=== PATIENT | male | born 1980 | race Caucasian/White ===

== ENCOUNTER 2018-03-14 18:44 | Observation (INO) | payer MEDICAID, MEDICARE ==
[2018-03-14] MEDS ORDERED: NORMAL SALINE 1,000 ML IV ONE (18:50)
--- NOTE | 2018-03-14 18:59 | ERNOTE ---
Abdominal HPI - Narrative Date of Service: 03/14/18 - General Time Seen by Provider: 03/14/18 18:47 Source: patient, RN/MD, EMS Exam Limitations: no limitations - History of Present Illness Narrative: patient presents to the ED in transfer for appendicitis, acute. He was seen at [facility] today for abdominal pain right sided. This was diagnosed by CT as a retrocecal appendicitis without apparent complication. No surgeons available at [place], patient transferred here. Patient relates pain under control right now. Still with some right sided pain though. Nausea is now under control. Timing: constant Activities at Onset: none Modifying Factors - (Improves): Present: other - nothing Modifying Factors - (Worsens): Present: other - nothing Associated Symptoms: Present: diarrhea-mucous, nausea. Absent: chest pain, shortness of breath Prior Abdominal Problems: Absent: similar symptoms Prior Treatment: Present: recently seen, treated by physician Review of Systems - Review of Systems Constitutional: Absent: fever EYE: Present: no symptoms reported Respiratory: Absent: shortness of breath Cardiology: Absent: chest pain Gastrointestinal/Abdominal: Present: abdominal pain Genitourinary: Absent: dysuria All Other Systems: All systems neg except as marked Medical History (Last Updated 03/14/18 @ 18:56 by Jim Richardson MD) TBI (traumatic brain injury) TBI (traumatic brain injury) Social History: Preferred Language Albanian Physical Exam - Physical Exam General Appearance: Present: alert, no apparent distress Head Exam: Present: normal inspection, no evidence of injury Eye Exam: Normal inspection: bilateral, PERRL: bilateral Ears, Nose, Throat: Present: normal ENT inspection Neck: Present: normal inspection Respiratory: Present: no respiratory distress, normal breath sounds, no accessory muscle use, lungs clear Cardiovascular/Chest: Present: regular rate, rhythm, normal peripheral pulses Gastrointestinal/Abdominal: Present: normal bowel sounds, soft, other - RLQ tenderness topalpation, guarding noted. Back Exam: Present: normal range of motion Extremity Exam: Present: normal inspection Neurological Exam: Present: alert, no motor/sensory deficits Skin Exam: Present: normal color, warm/dry ED Progress - Results and Orders Results and Orders: I reviewed labs from outlying hospital - Vital Signs Patient's Vital Signs:: I have reviewed the patient's vital signs. - Progress/Reassessment Progress Note-Subjective: 03/14/18 18:57 Patient seen in ED. I spoke with Dr Schmitz who saw the patient in the ED and will take the patient to surgery. Departure Clinical Impression: Acute appendicitis - Departure Disposition: Still a patient Condition: Stable
--- NOTE | 2018-03-14 19:24 | ERNOTE ---
Abdominal HPI - Narrative Date of Service: 03/14/18 - General Chief Complaint: Abdominal Pain Time Seen by Provider: 03/14/18 18:47 Source: patient Exam Limitations: no limitations - Immun/Allergies/Home Medications Immunizatons: IMMUNIZATION HX Immunizations Up to Date No History of Influenza Vaccine Yes Hx Pneumococcal Vaccination No Allergies/Adverse Reactions: Allergies none Allergy (Uncoded 03/14/18 19:19) No allergies Home Medications: HOME MEDICATIONS Citalopram HBr 03/14/18 [Last Taken Unknown] [place] 03/14/18 [Last Taken Unknown] Seroquel 03/14/18 [Last Taken Unknown] - History of Present Illness Narrative: Pt developed right sided abdominal pain this am. Made himself throw up this am to try to feel better. However, this did not improve his symptoms. He has felt like this before, but never this severe. He went to the [place] emergency room, had a CT scan which showed retrocecal appendicitis, and was transferred to [place]. He has leukocytosis with a white count of 13.1. Date (Duration): 03/14/18 Time (Timing): 19:14 Timing: getting worse Review of Systems - Review of Systems Constitutional: Present: fever, malaise EYE: Present: no symptoms reported ENT: Present: no symptoms reported Respiratory: Present: no symptoms reported Cardiology: Present: no symptoms reported Gastrointestinal/Abdominal: Present: nausea, vomiting, abdominal pain, eating less, drinking less Genitourinary: Present: no symptoms reported Musculoskeletal: Present: no symptoms reported Skin: Present: no symptoms reported Neurological: Present: no symptoms reported Endocrine: Present: no symptoms reported Hematologic/Lymphatic: Present: no symptoms reported Psych: Present: other - history of traumatic brain injury Medical History (Last Updated 03/14/18 @ 19:16 by Zuly Schmitz DO) Left elbow pain TBI (traumatic brain injury) TBI (traumatic brain injury) Family History: Family History (Last Updated 03/14/18 @ 19:16 by Zuly Schmitz DO) Other Breast cancer Social History: Preferred Language [place]ese Do you have any episcopalian or No cultural preference? Smoking Status Never smoker Alcohol Use none Drug Use none Physical Exam - Physical Exam General Appearance: Present: alert, no apparent distress, other - slightly d ecreased mental capacity Head Exam: Present: normal inspection Eye Exam: Normal inspection: bilateral Ears, Nose, Throat: Present: normal ENT inspection Neck: Present: normal inspection Respiratory: Present: no respiratory distress Cardiovascular/Chest: Present: regular rate, rhythm Gastrointestinal/Abdominal: Present: normal bowel sounds, tenderness, guarding, McBurney sign Extremity Exam: Present: normal inspection Neurological Exam: Present: alert, oriented, normal mood/affect Skin Exam: Present: normal color ED Progress - Vital Signs Vital Signs: Vital Signs 03/14/18 18:50 Temperature 36.9 C Pulse Rate 75 Respiratory Rate 16 Blood Pressure 154/54 H O2 Sat by Pulse Oximetry 98 - Progress/Reassessment Chief Complaint: Abdominal Pain Plan - Plan Plan: Assessment: Appendicitis History of traumatic brain injury Plan: Patient will be taken to the OR emergently for a laparoscopic possible open appendectomy. He'll receive antibiotics, pain and nausea will be controlled. Risks and benefits of the procedure were discussed with the patient including, possible open procedure and infection. He will stay overnight for observation. Voices understanding and would like to proceed. Departure Clinical Impression: Acute appendicitis - Departure Disposition: Still a patient Condition: Stable
--- NOTE | 2018-03-14 19:43 | ANES ---
Anesthesia Pre Procedure Eval Vitals/Labs: Last Vital Signs Temp 36.9 C 03/14/18 18:50 Pulse 75 03/14/18 18:50 Resp 16 03/14/18 18:50 BP 154/54 H 03/14/18 18:50 Pulse Ox 98 03/14/18 18:50 HOME MEDICATIONS Citalopram HBr 03/14/18 [Last Taken Unknown] [place] 03/14/18 [Last Taken Unknown] Seroquel 03/14/18 [Last Taken Unknown] Allergies/Adverse Reactions: Allergies Allergy/AdvReac Type Severity Reaction Status Date / Time none Allergy Uncoded 03/14/18 19:19 - Planned Procedure Planned Procedure: APPY Medication List Reviewed:: Yes Allergies Verified: Yes Medical History (Last Updated 03/14/18 @ 19:16 by Zuly Schmitz DO) Left elbow pain TBI (traumatic brain injury) TBI (traumatic brain injury) Family History (Last Updated 03/14/18 @ 19:16 by Zuly Schmitz DO) Other Breast cancer - Family Anesthesia History Family History:: no untoward family reactions to anesthesia, no familial bleeding tendencies, no family history of clotting disorders, no family history of premature - Airway/Neck/Teeth Within Normal Limits:: Yes Teeth Condition: Intact Mallampatti Score: 2 Thyromental (T-M) distance: > 6 cm Mandibulo Hyoid distance: > 3 cm - Respiratory Respiratory: lungs clear Smoking Status: Never smoker Discussed smoking cessation including day of surgery: No Sleep Apnea currently treated: Yes Sleep Apnea by current assessment: Yes Discussed Risks/Treatment of ANGEL: No - Cardiovascular Tolerates Activity: Good Heart Sounds: S1 & S2, Regular - Anesthesia Assessment and Plan ASA Class: PS, III, E Anesthesia Type Plan: General ET Planned difficult intubation/equipment available: No
[2018-03-14] MEDS ORDERED: CEFOXITIN SODIUM 2 GM in DEXTROSE 5 % IN WATER 100 ML IV ONE ×2 (19:50)
[2018-03-14] MEDS ORDERED: BUPIVACAINE HCL 50 ML VIAL IJ ONE (21:31)
[2018-03-14] MEDS ORDERED: RINGER'S SOLUTION,LACTATED 1,000 ML IV PRN (21:33)
[2018-03-14] MEDS ORDERED: POTASSIUM CHLORIDE 20 MEQ in DEXTROSE 5%-0.5 NORMAL SALINE 990 ML IV SCH (22:00)
[2018-03-14] MEDS ORDERED: ONDANSETRON HCL/PF 2 MG/ML VIAL IV PRN (22:10)
[2018-03-14] MEDS: HYDROmorphone HCL 1 MG/ML DISP.SYRIN IV PRN (22:13)
[2018-03-14] MEDS ORDERED: PROCHLORPERAZINE EDISYLATE 5 MG/ML VIAL IV PRN (22:18)
[2018-03-14] MEDS ORDERED: HYDROmorphone HCL 2 MG/ML VIAL IV PRN (22:18)
[2018-03-14] MEDS ORDERED: diphenhydrAMINE HCL 50 MG/ML VIAL IV PRN (22:18)
[2018-03-14] MEDS ORDERED: NALOXONE HCL 0.4 MG/ML VIAL IV PRN (22:18)
[2018-03-14] MEDS ORDERED: HYDROmorphone HCL 1 MG/ML DISP.SYRIN IV ONE (22:18)
--- NOTE | 2018-03-14 22:27 | ANES ---
Post Anesthesia Assessment - Vital Signs Vitals: Last Vital Signs Temp 36.6 C 03/14/18 20:28 Pulse 72 03/14/18 20:28 Resp 16 03/14/18 20:28 BP 136/73 03/14/18 20:28 Pulse Ox 98 03/14/18 20:28 Airway Patency: Normal - Mental Status Level Of Consciousness: Awake - Pain Level Pain Score: 5 - N/V Assessment Nausea/Vomiting Presence: None Dehydration:: No
[2018-03-14] MEDS ORDERED: CITALOPRAM HYDROBROMIDE 20 MG TABLET PO SCH (23:45)
[2018-03-14] MEDS ORDERED: QUEtiapine FUMARATE 100 MG TABLET PO SCH (23:45)
[2018-03-15] MEDS ORDERED: MIRTAZAPINE 15 MG TABLET ONE (00:51)
[2018-03-15] MEDS ORDERED: MIRTAZAPINE 15 MG TABLET PO ONE (01:15)
[2018-03-15] MEDS: HYDROcodone/ACETAMINOPHEN 1 EACH TABLET PO PRN ×3 (01:31→13:49)
[2018-03-15] MEDS: HYDROmorphone HCL 1 MG/ML DISP.SYRIN IV PRN (04:42)
--- NOTE | 2018-03-15 07:28 | OR ---
Operative Report - Dictated Report Narrative: Date of Service: 03/14/18 Procedure: laparoscopic appendectomy Pre-procedure diagnosis: acute appendicitis Post-procedure diagnosis: perforated appendix, left inguinal hernia Surgeon: Dr. Zuly Schmitz Anesthesia: general Indication for procedure: Jeet is a pleasant 37-year-old gentleman who has a history of traumatic brain injury. He has had abdominal pain, and came to the emergency room for evaluation, he was found to have acute appendicitis, he was transferred from [place]. Description of procedure: After appropriate informed consent was obtained patient was taken to the operating room, placed in the supine position. General anesthesia was achieved. The RN placed a Romero catheter. The patient was prepped and draped in the usual sterile fashion. A 5 mm periumbilical incision was made, hemostat was used to dissect down to the fascia. A Veress needle was inserted, a saline drop test was performed which was satisfactory. The abdomen was insufflated to 15 mmHg. A 5mm blunt trocar was placed at the umbilicus. The camera was inserted, there was no evidence of a trocar injury. A 12 mm trocar was placed in the left lower quadrant of the abdomen. A 5 mm trocar was placed in the suprapubic region. The patient was placed in a head down, rotated left position, to facilitate exposure. The appendix was identified, it appeared consistent with acute appendicitis with perforation and was retrocecal. A window was made in the mesoappendix. The 45 mm echelon stapler with the blue load was placed across the base of the appendix. There was good hemostasis. The terminal ileum was closely adherent to the appendix, used the Thunderbeat, to remove the meso appendix, to avoid injury of the terminal ileum. There was good hemostasis. The appendix was removed through an Endo Catch bag. The abdomen was inspected and the staple lines were intact, with good hemostasis. The remainder of the abdomen was inspected and was satisfactory. The 12 mm trocar site was closed with an 0 Vicryl suture using a PMI device. The abdomen was desufflated. Local anesthetic was injected. The incisions were closed with inverted interrupted 4-0 Monocryl sutures. Mastisol and Steri-Strips were applied. The patient tolerated the procedure well and was transported to the PACU in satisfactory condition. Estimated blood loss: minimal Complications: none Specimens to pathology: appendix Disposition: The patient will be admitted to the floor for observation, he will be continued on antibiotics due to the perforation. I will discuss the Left inguinal hernia at his follow up appointment.
--- NOTE | 2018-03-15 09:05 | DS ---
Description of Stay: pt was admitted and had an appy, he is doing well and going home. Procedures Performed: see notes below List Procedures: lap appy Discharge Location: Home Disposition: Home self-care Condition: Stable Discharge Activity: Activity as tolerated, Other - if it hurts do not do it Complete Home Medications List: Complete Home Medication List: Citalopram Hydrobromide [Citalopram HBr] 40 mg PO HS 03/14/18 [place] Carbonate 150 mg PO HS 03/14/18 Mirtazapine 30 mg PO HS 03/14/18 QUEtiapine FUMARATE [Seroquel] 100 mg PO HS 03/14/18 Citalopram Hydrobromide [Celexa] 40 mg PO ONCE tablet 03/15/18 Citalopram Hydrobromide [Citalopram HBr] 40 mg PO HS 03/15/18 HYDROcodone/ACETAMINOPHEN [[place] 5-325] 5.325 mg PO Q6H PRN tablet 03/15/18 [place] Carbonate [[place] Carbonate] 150 mg PO HS 03/15/18 Mirtazapine [Mirtazapine] 30 mg PO HS 03/15/18 QUEtiapine FUMARATE [Seroquel] 100 mg PO HS tablet 03/15/18 QUEtiapine FUMARATE [Seroquel] 100 mg PO ONCE tablet 03/15/18
[2018-03-15 16:04] VITALS: BP 121/64
[2018-03-15] MEDS ORDERED: CITALOPRAM HYDROBROMIDE 20 MG TABLET PO SCH (21:00)
[2018-03-15] MEDS ORDERED: QUEtiapine FUMARATE 100 MG TABLET PO SCH (21:00)
[2018-03-15] MEDS ORDERED: LITHIUM CARBONATE 150 MG CAPSULE PO SCH (21:00)
[2018-03-15] MEDS ORDERED: MIRTAZAPINE 15 MG TABLET PO SCH (21:00)
--- NOTE | 2018-04-29 09:00 | ANES ---
Post Anesthesia Discharge - Transfer of Care Transfer of Care handoff given to nurse: Yes - Discharge from PACU Discharge from PACU when meets criteria: Yes - Discharge to ASU Discharge to ASU-no complications/pt stable: Yes
== END 2018-03-15 15:08 | disposition home or self-care (01) ==
LOC: ER 18:44 → AMB 19:12 → MS 19:12 → AMB 20:19
PROVIDERS: ADMIT Surgery; ATTEND Surgery
CPT/HCPCS: 88304; 94660; 96361; 96374; 96376; 99284; G0378